=== PATIENT | female | born 1990 | race American Indian/Alaskan Native ===

== ENCOUNTER 2021-05-22 13:23 | Emergency (ER) | payer SELFPAY ==
[2021-05-22 15:10] VITALS: BP 114/74
[2021-05-22] MEDS ORDERED: IBUPROFEN 800 MG TAB PO ONE (16:06)
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
== END 2021-05-22 18:00 | disposition home or self-care (01) ==
LOC: ED 13:23
DX: S13.4XXA Sprain of ligaments of cervical spine, initial encounter (principal); S46.912A Strain of unspecified muscle, fascia and tendon at shoulder and upper arm level, left arm, initial encounter; S39.012A Strain of muscle, fascia and tendon of lower back, initial encounter; Z79.899 Other long term (current) drug therapy; V49.49XA Driver injured in collision with other motor vehicles in traffic accident, initial encounter; Y92.410 Unspecified street and highway as the place of occurrence of the external cause; Y93.89 Activity, other specified; Y99.8 Other external cause status
CPT/HCPCS: 72040; 72100